=== PATIENT | female | born 1970 | race Caucasian/White ===

== ENCOUNTER 2017-04-20 17:33 | Emergency (ER) | payer BC ==
[~2017-04-20] VITALS: Ht 170.2 cm; Wt 86.2 kg
[2017-04-20] MEDS ORDERED: IV NORMAL SALINE 1,000ML 1,000 ML IV ONE (18:45)
[2017-04-20] MEDS ORDERED: IOHEXOL 300 MG/ML 75 ML VIAL. IV ONE (19:00)
[2017-04-20] MEDS ORDERED: CONTRAST GIVEN MC PRN (19:00)
[2017-04-20 19:33] LABS: BASO # 0.1 x10^3/uL (0.0-0.2); BASO % 1 % (0-3); EOS # 0.3 x10^3/uL (0.0-0.7); EOS % 3 % (0-3); HEMATOCRIT 29.4 % (36.0-47.0); LYMPH # 2.2 x10^3/uL (1.0-4.8); LYMPH % 22 % (24-48); MEAN CORPUSCULAR HEMOGLOBIN 21 pg (25-35); MEAN CORPUSCULAR HGB CONC 31 g/dL (31-37); MEAN CORPUSCULAR VOLUME 68 fL (79-100); MONO # 0.8 x10^3/uL (0.0-1.1); MONO % 9 % (0-9); NEUT # 6.3 x10^3uL (1.8-7.7); NEUT % 65 % (31-73); PLATELET COUNT 287 x10^3/uL (140-400); RED BLOOD COUNT 4.33 x10^6/uL (3.50-5.40); RED CELL DISTRIBUTION WIDTH 17.5 % (11.5-14.5); WHITE BLOOD COUNT 9.6 x10^3/uL (4.0-11.0)
[2017-04-20 19:48] LABS: ALBUMIN 3.8 g/dL (3.4-5.0); ALBUMIN/GLOBULIN RATIO 0.8 (1.0-1.7); CALCIUM 8.6 mg/dL (8.5-10.1); CREATININE 0.6 mg/dL (0.6-1.0); GFR 108.6; POTASSIUM 3.3 mmol/L (3.5-5.1); TOTAL BILIRUBIN 0.6 mg/dL (0.2-1.0); TOTAL PROTEIN 8.5 g/dL (6.4-8.2)
--- NOTE | 2017-04-20 20:18 | RAD ---
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 There is a discordance 04/04/2017. Comparison made to a CT abdomen and pelvis from 11/15/2014. TECHNIQUE: Contiguous helical acquisition was obtained through the abdomen and pelvis during intravenous demonstration of 75 cc of Omnipaque 300. Sagittal and coronal reformatted images were obtained and reviewed. FINDINGS: The lung bases are clear. The visualized heart is normal. The liver, spleen, pancreas and gallbladder appears normal. Previous gastric bypass. Both adrenal glands and bilateral kidneys are normal in size with symmetric excretion of contrast via both kidneys. There is a nonobstructing 6.6 mm calculus in the left inferior renal pole. A 2 mm tiny nonobstructing calculus in the right mid pole. Aorta is normal. Small and large bowel loops are nondilated and unremarkable. Diffuse scattered stool throughout the colon. Appendix is not clearly identified. There are not infiltrated changes in the right lower quadrant. Urinary bladder is decompressed. The uterus is retroverted. No adnexal masses seen. Sigmoid diverticulosis without acute diverticulitis. Probable collapsing left ovarian cyst. Interrogation of bone windows demonstrates no bony abnormalities. IMPRESSION: 1. No acute intra-abdominal or pelvic process seen. 2. Nonobstructing bilateral renal calculi. 3. Extensive scattered stool throughout the colon. Correlate clinically for constipation. 4. Collapsing left ovarian cyst. PQRS Compliance Statement: One or more of the following individualized dose reduction techniques were utilized for this examination: 1. Automated exposure control 2. Adjustment of the mA and/or kV according to patient size 3. Use of iterative reconstruction technique Electronically signed by: Donna Christy MD (04/20/2017 8:15 PM)
[2017-04-20 20:24] LABS: BILIRUBIN,URINE NEG (NEG); CLARITY,URINE HAZY; COLOR,URINE YELLOW; GLUCOSE,URINE NEG (NEG); NITRITE,URINE NEG (NEG); UROBILINOGEN,URINE 0.2 mg/dL (0.2 mg/dL)
[2017-04-20 20:25] LABS: BACTERIA,URINE FEW /HPF (0-FEW); RBC,URINE 0 /HPF (0-2); SQUAMOUS EPITHELIAL CELL,UR MANY /LPF
[2017-04-20 21:00] VITALS: BP 132/83
--- NOTE | 2017-04-20 21:02 | PHYS DOC ---
Past History Past Medical History: No Pertinent History Past Surgical History: Gastric Bypass Alcohol Use: None Drug Use: None Adult General Chief Complaint Chief Complaint: ABDOMINAL PAIN HPI HPI Patient is a 46 year old F who presents with right lower quadrant abdominal pain since last night. Patient has a history of gastric sleeve. Patient denies any nausea/vomiting/diarrhea. Patient denies any fevers. Patient states nothing increases or decreases her abdominal pain. Patient rates the abdominal pain as a dull ache. Patient has no other complaints. Patient denies any chest pain or shortness of breath. Pertinent exam findings: Mild tenderness palpation right lower quadrant, no rebound tenderness, bowel sounds heard in all 4 quadrants ED course: Patient was seen and evaluated CBC, CMP, lipase, UA, CT scan abdomen pelvis with contrast was ordered 2054: Patient was reevaluated when she was feeling much better discussed CT results and lab results the patient. Made patient aware of her anemia and hemoglobin of 9.0 recommended follow-up PCP for further evaluation and workup for her anemia. Patient is comfortable going home. Pertinent results: Hemoglobin 9.0 CT scan abdomen pelvis with contrast shows a collapsed left cyst otherwise NAD MDM: After reviewing the chart, CC/HPI/PMH, physical exam, [lab results], [ radiological results], I do not believe the patient has intra-abdominal emergency like acute appendicitis warranting further workup and/or admission at this time. I did explain to the patient that this could be possibly early appendicitis however given her normal blood work and nonspecific abdominal exam I believe she can be discharged home with short-term follow-up with her PCP in one to 2 days. Patient was comfortable being discharged home. Made patient aware of her hemoglobin and recommended outpatient workup for anemia. Patient is stable for discharge. Additional verbal discharge instructions were provided to the patient and that if symptoms get worse or any new symptoms arise that are worrisome to the patient she is to return to the emergency room immediately Review of Systems Review of Systems GEN: Denies fevers, chills, sweats HEENT: Denies blurred vision, sore throat CV: Denies chest pain RESP: Denies shortness of air, cough GI: Abdominal pain but Denies n/v/d NEURO: Denies confusion, dizziness MSK: Denies weakness, joint pain/swelling Current Medications Current Medications Current Medications Medications (Trade) Dose Ordered Sig/Sarah Start Time Stop Time Status Last Admin Dose Admin Info (Do NOT chart on this entry -- for MONITORING) 1 each PRN DAILY PRN 04/20/17 19:00 04/22/17 18:59 Iohexol (Omnipaque 300 Mg/ml) 75 ml 1X ONCE 04/20/17 19:00 04/20/17 19:01 DC 04/20/17 19:22 75 ML Sodium Chloride 1,000 ml @ 1,000 mls/hr 1X ONCE 04/20/17 18:45 04/20/17 19:44 DC 04/20/17 19:20 1,000 MLS/HR Allergies Allergies Allergies Coded Allergies Type Severity Reaction Last Updated Verified No Known Drug Allergies 11/15/14 No Physical Exam Physical Exam GEN.: No apparent distress. Alert and oriented. HEENT: Head is normocephalic, atraumatic NECK: Supple. LUNGS: CTAB. HEART: RRR, S1, S2 present. Peripheral pulses intact ABDOMEN: Soft, Mild tenderness palpation right lower quadrant, no rebound tenderness, bowel sounds heard in all 4 quadrants EXTREMITIES: Without any cyanosis. NEUROLOGIC: Normal speech, normal tone PSYCHIATRIC: Normal affect, normal mood. SKIN: No ulcerations Current Patient Data Vital Signs Vital Signs Date Time Temp Pulse Resp B/P (MAP) Pulse Ox O2 Delivery O2 Flow Rate FiO2 04/20/17 18:25 98.4 77 18 100 Room Air Lab Results Laboratory Tests Test 04/20/17 16:30 04/20/17 18:53 04/20/17 18:57 Urine Collection Type Unknown Urine Color Yellow Urine Clarity Hazy Urine pH 5.5 Urine Specific Maybell >=1.030 Urine Protein Neg (NEG-TRACE) Urine Glucose (UA) Neg mg/dL (NEG) Urine Ketones (Stick) Neg mg/dL (NEG) Urine Blood Neg (NEG) Urine Nitrite Neg (NEG) Urine Bilirubin Neg (NEG) Urine Urobilinogen Dipstick 0.2 mg/dL (0.2 mg/dL) Urine Leukocyte Esterase Trace (NEG) Urine RBC 0 /HPF (0-2) Urine WBC 5-10 /HPF (0-4) Urine Squamous Epithelial Cells Many /LPF Urine Bacteria Few /HPF (0-FEW) Urine Mucus Marked /LPF Urine Test Negative (NEG) POC Urine HCG, Qualitative hcg negative (Negative) White Blood Count 9.6 x10^3/uL (4.0-11.0) Red Blood Count 4.33 x10^6/uL (3.50-5.40) Hemoglobin 9.0 g/dL (12.0-15.5) L Hematocrit 29.4 % (36.0-47.0) L Mean Corpuscular Volume 68 fL (79-100) L Mean Corpuscular Hemoglobin 21 pg (25-35) L Mean Corpuscular Hemoglobin Concent 31 g/dL (31-37) Red Cell Distribution Width 17.5 % (11.5-14.5) H Platelet Count 287 x10^3/uL (140-400) Neutrophils (%) (Auto) 65 % (31-73) Lymphocytes (%) (Auto) 22 % (24-48) L Monocytes (%) (Auto) 9 % (0-9) Eosinophils (%) (Auto) 3 % (0-3) Basophils (%) (Auto) 1 % (0-3) Neutrophils # (Auto) 6.3 x10^3uL (1.8-7.7) Lymphocytes # (Auto) 2.2 x10^3/uL (1.0-4.8) Monocytes # (Auto) 0.8 x10^3/uL (0.0-1.1) Eosinophils # (Auto) 0.3 x10^3/uL (0.0-0.7) Basophils # (Auto) 0.1 x10^3/uL (0.0-0.2) Sodium Level 139 mmol/L (136-145) Potassium Level 3.3 mmol/L (3.5-5.1) L Chloride Level 105 mmol/L (98-107) Carbon Dioxide Level 22 mmol/L (21-32) Anion Gap 12 (6-14) Blood Urea Nitrogen 17 mg/dL (7-20) Creatinine 0.6 mg/dL (0.6-1.0) Estimated GFR (Cockcroft-Gault) 108.6 BUN/Creatinine Ratio 28 (6-20) H Glucose Level 87 mg/dL (70-99) Calcium Level 8.6 mg/dL (8.5-10.1) Total Bilirubin 0.6 mg/dL (0.2-1.0) Aspartate Amino Transferase (AST) 12 U/L (15-37) L Alanine Aminotransferase (ALT) 20 U/L (14-59) Alkaline Phosphatase 64 U/L (46-116) Total Protein 8.5 g/dL (6.4-8.2) H Albumin 3.8 g/dL (3.4-5.0) Albumin/Globulin Ratio 0.8 (1.0-1.7) L Lipase 120 U/L (73-393) EKG EKG [] Radiology/Procedures Radiology/Procedures CT scan abdomen and pelvis with contrast: MPRESSION: 1. No acute intra-abdominal or pelvic process seen. 2. Nonobstructing bilateral renal calculi. 3. Extensive scattered stool throughout the colon. Correlate clinically for constipation. 4. Collapsing left ovarian cyst. [] Course & Med Decision Making Course & Med Decision Making Pertinent Labs and Imaging studies reviewed. (See chart for details) [] Dragon Disclaimer Dragon Disclaimer This chart was dictated in whole or in part using Voice Recognition software in a busy, high-work load, and often noisy Emergency Department environment. It may contain unintended and wholly unrecognized errors or omissions. Departure Departure: Impression: Primary Impression: Abdominal pain Additional Impression: Anemia Disposition: 01 HOME, SELF-CARE Condition: IMPROVED Referrals: NHUNG THOMAS MD (PCP) Patient Instructions: Abdominal Pain (Nonspecific) Additional Instructions: Please follow up with her family doctor in the next 1-2 days for potential colonoscopy or EGD, return if symptoms get worse. Problem Qualifiers Primary Impression: Abdominal pain Abdominal location: right lower quadrant Qualified Codes: R10.31 - Right lower quadrant pain Additional Impression: Anemia Anemia type: unspecified type Qualified Codes: D64.9 - Anemia, unspecified JAY ZIMMERMAN DO Apr 20, 2017 21:02
[2017-04-20 22:45] LABS: ANISOCYTOSIS SLIGHT; MICROCYTOSIS MOD; PLT ESTIMATE ADEQUATE (ADEQUATE)
[2017-04-20 22:46] LABS: HYPOCHROMIA MOD; OVALOCYTES FEW
== END 2017-04-20 21:07 | disposition home or self-care (01) ==
LOC: ER 17:33
DX: R10.31 Right lower quadrant pain (principal); D64.9 Anemia, unspecified; Z98.84 Bariatric surgery status
CPT/HCPCS: 36415; 74177; 80053; 81001; 81025; 83690; 85008; 85027; 96360; 99285; Q9967; J7030

== ENCOUNTER 2018-10-09 09:54 | Emergency (ER) | payer BC ==
[~2018-10-09] VITALS: Ht 160 cm; Wt 80.8 kg
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
[2018-10-09] MEDS ORDERED: methylPREDNISolone SOD SUCC PF 125 MG/2 ML VIAL. IM ONE (10:45)
[2018-10-09] MEDS ORDERED: PRED-220 PO (11:23)
[2018-10-09 11:25] VITALS: BP 136/74
== END 2018-10-09 11:26 | disposition home or self-care (01) ==
LOC: ER 09:54
DX: R21 Rash and other nonspecific skin eruption (principal); L29.8 Other pruritus; H57.89 Other specified disorders of eye and adnexa; L53.8 Other specified erythematous conditions
CPT/HCPCS: 96372; 99283; J2930